=== PATIENT | male | born 1940 | race Caucasian/White ===

== ENCOUNTER → 2016-11-10 | Outpatient (CLI) | payer MEDICARE ==
[2016-11-10 18:58] LABS: MAGNESIUM 1.9 mg/dL (1.6-2.3); POTASSIUM 4.5 mmol/L (3.6-5.0)
[2016-11-14 16:39] LABS: FOL RBC HEMATOCRIT 39.1 % (37.5-51.0); FOLATE HEMOLYSATE 316.1 ng/mL (Not Estab.)
[2016-11-15 07:03] LABS: FOLATE RBC 3 808 ng/mL (>498)
== END ==
LOC: OD 16:06
PROVIDERS: ATTEND Internal Medicine Pulmonary Disease
DX: G25.81 Restless legs syndrome (principal); D50.8 Other iron deficiency anemias
CPT/HCPCS: 36415; 82306; 82607; 82728; 82747; 83735; 84132

== ENCOUNTER → 2016-11-17 | Outpatient (CLI) | payer MEDICAID, MEDICARE ==
--- NOTE | 2016-11-20 14:59 | XCELERA REPORT ---
[address] [address] Transthoracic Echocardiogram Report Name: VIRGINIA SOARES I Age: 76 yrs Gender: Male : 1940 Patient Status: Outpatient Patient Location: Study Date: 11/17/2016 12:54 PM Height: 72 in Weight: 170 lb BSA: 2.0 m2 Procedure: A complete two-dimensional transthoracic echocardiogram was performed (2D, M-mode, spectral and color flow Doppler). The study was technically adequate with some images being suboptimal in quality. Reason For Study: CHEST PAIN Ordering Physician: ALEJANDRO SHIN Performed By: Viri Taveras Interpretation Summary Left ventricular systolic function is low normal. Doppler measurements suggest impaired left ventricular relaxation, which is associated with grade I/IV or mild diastolic dysfunction There is mild concentric left ventricular hypertrophy. The left ventricle is grossly normal size. Wall motion cannot be accurately commented on, but no definite regional wall motion abnormalities noted. The right ventricle appears to be hypertrophied The right atrium is normal. The left atrial size is normal. There is no mitral valve stenosis. There is a trace amount of mitral regurgitation No aortic regurgitation is present. There is no aortic valve stenosis Tricuspid regurgitation jet envelope not well defined to measure RV systolic pressure accurately. There is a trace or physiologic amount of tricuspid regurgitation The aortic root is not well visualized. The inferior vena cava was not well visualized Minimal pericardial effusion. MMode/2D Measurements \T\ Calculations RVDd: 2.4 cm LVIDd: 4.1 cmFS: 29.7 % Ao root diam: 4.2 cm IVSd: 1.1 cm LVIDs: 2.9 cmEDV(Teich): 73.0 ml LVPWd: 1.1 cmESV(Teich): 31.2 ml Ao root area: 14.1 cm2 EF(Teich): 57.2 % LA dimension: 2.3 cm LVOT diam: 2.3 cm LVOT area: 4.2 cm2 Doppler Measurements \T\ Calculations MV E max raven: MV P1/2t max raven: Ao V2 max: AI max raven: 64.0 cm/sec 64.4 cm/sec 107.6 cm/sec 362.0 cm/sec MV A max raven: MV P1/2t: 76.1 msec Ao max PG: AI max P.9 cm/sec MVA(P1/2t): 2.9 cm2 4.6 mmHg 52.4 mmHg MV E/A: 1.3 MV dec slope: HUGO(V,D): 4.1 cm2 AI dec slope: 247.9 cm/sec2 135.0 cm/sec2 AI P1/2t: 785.4 msec LV V1 max PG: PA V2 max: TR max raven: 4.4 mmHg 79.8 cm/sec 207.6 cm/sec LV V1 max: PA max P.5 mmHg TR max P.3 cm/sec 17.2 mmHg Left Ventricle The left ventricle is grossly normal size. There is mild concentric left ventricular hypertrophy. Left ventricular systolic function is low normal. Doppler measurements suggest impaired left ventricular relaxation, which is associated with grade I/IV or mild diastolic dysfunction. Wall motion cannot be accurately commented on, but no definite regional wall motion abnormalities noted. Right Ventricle The right ventricle is normal in size, thickness and function. The right ventricle appears to be hypertrophied. The right ventricular systolic function is normal. Atria The right atrium is normal. The left atrial size is normal. Interarterial septum not well visualized and not well dopplered. Cannot comment on ASD/PFO presence. Mitral Valve The mitral valve is grossly normal. There is no mitral valve stenosis. There is a trace amount of mitral regurgitation. Aortic Valve The aortic valve is not well visualized secondary to technical limitations. There is no aortic valve stenosis. No aortic regurgitation is present. Tricuspid Valve The tricuspid valve is not well visualized, but is grossly normal. There is no tricuspid stenosis. There is a trace or physiologic amount of tricuspid regurgitation. Tricuspid regurgitation jet envelope not well defined to measure RV systolic pressure accurately. Pulmonic Valve The pulmonic valve is not well visualized. Great Vessels The aortic root is not well visualized. The inferior vena cava was not well visualized. Effusions Minimal pericardial effusion. : ALEJANDRO SHIN > Sunitha Bautista
== END ==
LOC: SP 12:31
PROVIDERS: ATTEND Internal Medicine Pulmonary Disease
DX: R07.1 Chest pain on breathing (principal)
CPT/HCPCS: 93306

== ENCOUNTER → 2017-04-20 | Outpatient (CLI) | payer MEDICARE, MEDICAID ==
[2017-04-20 13:30] LABS: HEMATOCRIT 39.9 % (37.9-51.0); HEMOGLOBIN 13.4 g/dL (13.5-17.0); HGB HCT DIFFERENCE 0.3; MEAN CORPUSCULAR HEMOGLOBIN 28.4 pg (27.0-33.4); MEAN CORPUSCULAR HGB CONC 33.7 g/dL (32.0-36.0); MEAN CORPUSCULAR VOLUME 84 fl (80-97); RED BLOOD COUNT 4.74 10^6/uL (4.35-5.55); RED CELL DISTRIBUTION WIDTH 14.4 % (11.5-14.0); WHITE BLOOD COUNT 6.7 10^3/uL (4.0-10.5)
[2017-04-20 13:52] LABS: ALANINE AMINOTRANSFERASE 27 U/L (21-72); ALBUMIN 4.1 g/dL (3.5-5.0); ALKALINE PHOSPHATASE 71 U/L (38-126); ANION GAP 12 (5-19); ASPARTATE AMINO TRANSFERASE 16 U/L (17-59); BILIRUBIN,DIRECT 0.1 mg/dL (0.0-0.4); BILIRUBIN,TOTAL 0.4 mg/dL (0.2-1.3); BLOOD UREA NITROGEN 19 mg/dL (7-20); CALCIUM 9.8 mg/dL (8.4-10.2); CARBON DIOXIDE 27 mmol/L (22-30); CHLORIDE 102 mmol/L (98-107); CREATININE RESULT 1.57 mg/dL (0.52-1.25); GLUCOSE 92 mg/dL (75-110); POTASSIUM 4.5 mmol/L (3.6-5.0); SODIUM 140.5 mmol/L (137-145); TOTAL PROTEIN 6.4 g/dL (6.3-8.2)
== END ==
LOC: OD 12:35
PROVIDERS: ATTEND Nurse Practitioner Family
DX: Z01.812 Encounter for preprocedural laboratory examination (principal); I10 Essential (primary) hypertension
CPT/HCPCS: 36415; 80053; 83020; 83036; 85027

== ENCOUNTER → 2017-05-26 | Outpatient (CLI) | payer MEDICARE ==
--- NOTE | 2017-05-26 13:02 | RADIOLOGY REPORT (SQ) ---
EXAM DESCRIPTION: CT CHEST WITHOUT COMPLETED DATE/TIME: 05/26/2017 10:14 am REASON FOR STUDY: PULMONARY NODULE (R91.1) R91.1 SOLITARY PULMONARY NODULE COMPARISON: 08/12/2014 and 06/09/2014. TECHNIQUE: CT scan performed of the chest without intravenous contrast. Images reviewed with lung, soft tissue and bone windows. Reconstructed coronal and sagittal MPR images reviewed. All images st ored on PACS. All CT scanners at this facility use dose modulation, iterative reconstruction, and/or weight based d osing when appropriate to reduce radiation dose to as low as reasonably achievable (ALARA). [facility]: Dose Right [facility]: CareDose [facility]: Dose Right [facility]: Teradose 4D [facility]: [email or web address] RADIATION DOSE: CT Rad equipment meets quality standard of care and radiation dose reduction techniq ues were employed. CTDIvol: 13.1 mGy. DLP: 511 mGy-cm. mGy. LIMITATIONS: No technical limitations. FINDINGS: LUNGS AND PLEURA: Emphysematous changes with peripheral scarring. 6 mm nodule in the left upper lobe (series 4, image 23) unchanged since June 2014. Irregular spiculated lesion in the l eft upper lobe measuring 7 x 10 mm (series 4, image 32). This is in an area of previous pneumonitis and cystic change and has improved. No other pulmonary nodules or masses. No pleural effusion, pleu ral thickening, or pleural calcification. HILAR AND MEDIASTINAL STRUCTURES: No identified masses or abnormal nodes. No obvious aneurysm. HEART AND VASCULAR STRUCTURES: No aneurysm. No pericardial effusion. UPPER ABDOMEN: No significant findings. Limited exam. THYROID AND OTHER SOFT TISSUES: No masses. No adenopathy. BONES: No significant finding. HARDWARE: None in the chest. OTHER: No other significant findings. IMPRESSION: 1. 6 MM NODULE IN THE LEFT UPPER LOBE, UNCHANGED SINCE JUNE 2014. 2. SPICULATED LESION IN THE LEFT UPPER LOBE WHICH IS LIKELY FOCAL RESIDUAL SCAR IN AN AREA OF PREVIOU S INFLAMMATION/INFECTION. GENERAL APPEARANCE HAS PROGRESSIVELY IMPROVED. IF THERE IS CLINICAL DIXON RN REGARDING THIS AREA, PET SCAN MAY BE CONSIDERED. 3. CHRONIC EMPHYSEMATOUS CHANGES WITH PERIPHERAL SCARRING. NO OTHER SIGNIFICANT FINDINGS. TECHNICAL DOCUMENTATION: JOB ID: [id number] Quality ID # [id number]: Final reports with documentation of one or more dose reduction techniques (e.g., Au tomated exposure control, adjustment of the mA and/or kV according to patient size, use of iterative reconstruction technique) 2010 [employer]- All Rights Reserved
== END ==
LOC: RAD 10:02
PROVIDERS: ATTEND Internal Medicine Critical Care Medicine
DX: R91.1 Solitary pulmonary nodule (principal)
CPT/HCPCS: 71250

== ENCOUNTER → 2017-08-03 | Outpatient (CLI) | payer MEDICAID, MEDICARE ==
--- NOTE | 2017-08-03 14:33 | RADIOLOGY REPORT (SQ) ---
EXAM DESCRIPTION: CT CHEST WITHOUT COMPLETED DATE/TIME: 08/03/2017 2:10 pm REASON FOR STUDY: DYSPNEA (R06.00) R06.00 DYSPNEA, UNSPECIFIED COMPARISON: CT angio chest 06/09/2014, 08/12/2014, 05/26/2017 TECHNIQUE: CT scan performed of the chest without intravenous contrast. Images reviewed with lung, soft tissue and bone windows. Reconstructed coronal and sagittal MPR images reviewed. All images st ored on PACS. All CT scanners at this facility use dose modulation, iterative reconstruction, and/or weight based d osing when appropriate to reduce radiation dose to as low as reasonably achievable (ALARA). [facility]: Dose Right [facility]: CareDose [facility]: Dose Right [facility]: Teradose 4D [facility]: [employer] RADIATION DOSE: 12.2 mGy. LIMITATIONS: No technical limitations. FINDINGS: LUNGS AND PLEURA: The bandlike scar is present in the left upper lobe on axial images 31-3 5. Minimal nodularity along the posterior aspect of the scar 10 x 7 mm in size. This is unchanged c ompared to CT 05/26/2017. In 2014 a cavitary infiltrate was present in this area. Remainder of the lungs demonstrate centrilobular emphysema and mild peripheral interlobular septa thi ckening. Stable noncalcified granuloma less than 6 mm in size left lung apex. No dense consolidation worrisome for pulmonary edema or pneumonia. Airways are patent. HILAR AND MEDIASTINAL STRUCTURES: No identified masses or abnormal nodes. No obvious aneurysm. HEART AND VASCULAR STRUCTURES: Ascending aorta 4 cm in diameter, stable compared to studies dating ba ck to 2014. No pericardial effusion. Heavy coronary artery calcifications UPPER ABDOMEN: No significant findings. Limited exam. THYROID AND OTHER SOFT TISSUES: No masses. No adenopathy. BONES: No significant finding. HARDWARE: None in the chest. OTHER: No other significant findings. IMPRESSION: Stable probably benign benign postinflammatory scarring in the left upper lobe. Follow-up with non contrasted CT chest in May 2018. TECHNICAL DOCUMENTATION: JOB ID: [id number] Quality ID # [id number]: Final reports with documentation of one or more dose reduction techniques (e.g., Au tomated exposure control, adjustment of the mA and/or kV according to patient size, use of iterative reconstruction technique) 2010 [employer]- All Rights Reserved Reading location - IP/workstation name: [email or web address]
== END ==
LOC: RAD 13:50
PROVIDERS: ATTEND Internal Medicine Pulmonary Disease
DX: R06.00 Dyspnea, unspecified (principal)
CPT/HCPCS: 71250

== ENCOUNTER → 2018-02-14 | Outpatient (CLI) | payer MEDICARE, MEDICAID ==
--- NOTE | 2018-02-14 14:08 | RADIOLOGY REPORT (SQ) ---
EXAM DESCRIPTION: CT CHEST WITHOUT COMPLETED DATE/TIME: 02/14/2018 10:07 am REASON FOR STUDY: RESTRICTIVE LUNG DISEASE J98.4 OTHER DISORDERS OF LUNG COMPARISON: 08/03/2017 TECHNIQUE: CT scan performed of the chest without intravenous contrast. Images reviewed with lung, soft tissue and bone windows. Reconstructed coronal and sagittal MPR images reviewed. All images st ored on PACS. All CT scanners at this facility use dose modulation, iterative reconstruction, and/or weight based d osing when appropriate to reduce radiation dose to as low as reasonably achievable (ALARA). [facility]: Dose Right [facility]: CareDose [facility]: Dose Right [facility]: Teradose 4D [facility]: [employer] RADIATION DOSE: CT Rad equipment meets quality standard of care and radiation dose reduction techniq ues were employed. CTDIvol: 9.1 mGy. DLP: 352 mGy-cm. mGy. LIMITATIONS: No technical limitations. FINDINGS: LUNGS AND PLEURA: Mild centrilobular emphysematous changes. Pleural/ parenchymal scarring . HILAR AND MEDIASTINAL STRUCTURES: No identified masses or abnormal nodes. No obvious aneurysm. HEART AND VASCULAR STRUCTURES: No aneurysm. No pericardial effusion. UPPER ABDOMEN: No significant findings. Limited exam. THYROID AND OTHER SOFT TISSUES: No masses. No adenopathy. BONES: No significant finding. HARDWARE: None in the chest. OTHER: No other significant findings. IMPRESSION: Stable chronic lung changes with no acute findings in the thorax. TECHNICAL DOCUMENTATION: JOB ID: [id number] Quality ID # [id number]: Final reports with documentation of one or more dose reduction techniques (e.g., Au tomated exposure control, adjustment of the mA and/or kV according to patient size, use of iterative reconstruction technique) 2010 [employer]- All Rights Reserved Reading location - IP/workstation name: [email or web address]
== END ==
LOC: RAD 09:50
PROVIDERS: ATTEND Internal Medicine Critical Care Medicine
DX: J98.4 Other disorders of lung (principal)
CPT/HCPCS: 71250